=== PATIENT | female | born 2000 | race Caucasian/White ===

== ENCOUNTER 2024-08-09 11:16 | Outpatient (CLI) | payer BC, SELFPAY ==
[2024-08-09 15:12] LABS: Chlamydia DNA Amplified* NOT DETECTED (No Detected); GC DNA Amplified* NOT DETECTED (No Detected)
== END 2024-08-09 11:17 | disposition home or self-care (01) ==
LOC: NFLDUCREF 11:16
PROVIDERS: Visit Provider Physician Assistant
DX: Z20.2 Contact with and (suspected) exposure to infections with a predominantly sexual mode of transmission (principal); Z11.3 Encounter for screening for infections with a predominantly sexual mode of transmission
CPT/HCPCS: 87491; 87591